=== PATIENT | female | born 1960 | race Caucasian/White ===

== ENCOUNTER 2018-01-30 16:41 | Emergency (ER) | payer MEDICARE, OTHER ==
[~2018-01-30] VITALS: Ht 175.3 cm; Wt 64.8 kg
[2018-01-30 16:47] VITALS: BP 175/92
[2018-01-30] MEDS ORDERED: KETOROLAC 30 MG/1 ML ONE (17:13)
[2018-01-30] MEDS ORDERED: HYDROmorphone 2 MG/ML, 1ML ONE ×2 (17:13→18:18)
[2018-01-30] MEDS ORDERED: CYCLOBENZAPRINE 10 MG TABLET ONE (17:15)
[2018-01-30] MEDS ORDERED: CYCLOBENZAPRINE 10 MG TABLET PO ONE (17:30)
[2018-01-30] MEDS ORDERED: KETOROLAC 30 MG/1 ML IM ONE (17:30)
[2018-01-30] MEDS ORDERED: HYDROmorphone 1 MG/ML, 1ML IM ONE ×2 (17:30→18:30)
== END 2018-01-30 18:26 | disposition home or self-care (01) ==
LOC: ED 17:56
DX: S46.911A Strain of unspecified muscle, fascia and tendon at shoulder and upper arm level, right arm, initial encounter (principal); S16.1XXA Strain of muscle, fascia and tendon at neck level, initial encounter; E03.9 Hypothyroidism, unspecified; Z87.891 Personal history of nicotine dependence; Z88.8 Allergy status to other drugs, medicaments and biological substances; V49.49XA Driver injured in collision with other motor vehicles in traffic accident, initial encounter; Y93.89 Activity, other specified; Y99.8 Other external cause status; Y92.410 Unspecified street and highway as the place of occurrence of the external cause
CPT/HCPCS: 72125; 73030; 96372; 99284; J1170; J1885

== ENCOUNTER 2018-01-31 18:36 | Emergency (ER) | payer MEDICARE, OTHER ==
[~2018-01-31] VITALS: Ht 175.3 cm; Wt 66.2 kg
[2018-01-31 18:40] VITALS: BP 167/78
[2018-01-31] MEDS ORDERED: HYDROmorphone 2 MG/ML, 1ML ONE ×2 (19:57→21:03)
[2018-01-31] MEDS ORDERED: KETOROLAC 30 MG/1 ML ONE (19:58)
[2018-01-31] MEDS ORDERED: HYDROmorphone 1 MG/ML, 1ML IM ONE ×2 (20:00→21:00)
[2018-01-31] MEDS ORDERED: KETOROLAC 30 MG/1 ML IM ONE (20:00)
== END 2018-01-31 21:23 | disposition home or self-care (01) ==
LOC: ED 21:02
DX: M62.838 Other muscle spasm (principal); E03.9 Hypothyroidism, unspecified; I10 Essential (primary) hypertension
CPT/HCPCS: 96372; 99284; J1170; J1885

== ENCOUNTER 2019-05-31 13:47 | Emergency (ER) | payer MEDICARE, OTHER ==
[~2019-05-31] VITALS: Ht 175.3 cm; Wt 67.0 kg
[2019-05-31] MEDS ORDERED: PLEASE ENTER HEIGHT AND WEIGHT MC SCH (13:56)
[2019-05-31] MEDS ORDERED: ASPIRIN 81 MG TABLET CHEW PO ONE (14:00)
[2019-05-31] MEDS ORDERED: KETOROLAC 30 MG/1 ML IV ONE (14:00)
[2019-05-31] MEDS ORDERED: ASPIRIN 81 MG TABLET CHEW ONE (14:11)
[2019-05-31] MEDS ORDERED: KETOROLAC 30 MG/1 ML ONE (14:11)
[2019-05-31 14:12] LABS: BASOPHILS # (AUTO) 0.04 x10^3/uL (0-0.1); BASOPHILS % (AUTO) 1 % (0-1); EOSINOPHILS # (AUTO) 0.08 x10^3/uL (0-0.4); EOSINOPHILS % (AUTO) 2 % (1-7); LYMPHOCYTES # (AUTO) 1.98 x10^3/uL (1-3.4); LYMPHOCYTES % (AUTO) 41 % (22-44); MD NO; MEAN CORPUSCULAR HEMOGLOBIN 29.8 pg (27.0-34.8); MEAN CORPUSCULAR HGB CONC 33.9 g/dL (32.4-35.8); MEAN CORPUSCULAR VOLUME 88.1 fL (80-100); MEAN PLATELET VOLUME 7.4 fL (7.4-10.4); MONOCYTES # (AUTO) 0.28 x10^3/uL (0.2-0.8); MONOCYTES % (AUTO) 6 % (2-9); NEUTROPHILS # (AUTO) 2.47 x10^3/uL (1.8-6.8); NEUTROPHILS % (AUTO) 51 % (42-75); PLATELET COUNT 318 x10^3/uL (130-400); RED BLOOD COUNT 4.82 x10^6/uL (3.82-5.3)
--- NOTE | 2019-05-31 14:15 | NUR ---
PT PLACED ON HEART MONITOR, BP CUFF, PULSE OX. EKG COMPLETED ON ARRIVAL. WARM BLANKET PROVIDED, CALL LIGHT WITHIN REACH.
[2019-05-31 14:26] LABS: ALBUMIN 4.4 g/dL (3.4-5.0); ANION GAP 5 mmol/L (5-15); CALCIUM 9.2 mg/dL (8.5-10.1); CHLORIDE 109 mmol/L (98-107)
[2019-05-31 14:32] LABS: ALANINE AMINOTRANSFERASE 48 U/L (12-78); ALKALINE PHOSPHATASE 97 U/L (45-117); BILIRUBIN,TOTAL 0.6 mg/dL (0.2-1.0); CREATININE 0.85 mg/dL (0.55-1.02); TOTAL PROTEIN 7.7 g/dL (6.4-8.2); TROPONIN I < 0.015 ng/mL (0.000-0.045)
--- NOTE | 2019-05-31 14:55 | NUR ---
ADD ON ORDER FOR CTA. PT REPORTS NO CHANGE IN TIGHTNESS TO R CHEST/BACK. CALL LIGHT WITHIN REACH. VSS.
[2019-05-31] MEDS ORDERED: OMNIPAQUE 350 MG/ML, 100ML BOTTLE ONE (16:03)
--- NOTE | 2019-05-31 16:04 | NUR ---
PT BACK FROM CT. CALL LIGHT WITHIN REACH.
--- NOTE | 2019-05-31 16:23 | NUR ---
CTA RESULTS BACK, PT FOR RECHECK.
[2019-05-31 16:59] VITALS: BP 121/64
== END 2019-05-31 17:01 | disposition home or self-care (01) ==
LOC: ED 14:52
DX: R07.81 Pleurodynia (principal); R91.8 Other nonspecific abnormal finding of lung field; I10 Essential (primary) hypertension; R06.00 Dyspnea, unspecified; E78.5 Hyperlipidemia, unspecified; Z87.891 Personal history of nicotine dependence
CPT/HCPCS: 36415; 71045; 71275; 80053; 84484; 85025; 85379; 93005; 96374; 99284; J1885; Q9967